=== PATIENT | female | born 1990 | race Caucasian/White ===

== ENCOUNTER 2018-05-09 18:45 | Emergency (ER) | payer BC, SELFPAY ==
[2018-05-09] MEDS ORDERED: DUONEB 0.5-3 MG/3 ml Neb IH ONE ×2 (18:52→19:20)
[2018-05-09] MEDS ORDERED: solu-MEDROL 125 MG IV ONE (18:52)
[2018-05-09] MEDS ORDERED: Zofran 4 MG/2 ML VIAL IV ONE (18:52)
--- NOTE | 2018-05-09 18:52 | ERPHSYRPT ---
- History of Present Illness Time Seen by Provider: 05/09/18 18:49 Source: patient, family Exam Limitations: no limitations Physician History: pt is 27 year old female with 2 day hx min productive cough - no fever , some short of breath - no hx heart dx or CP - no hx PE or DVT , recent hops /surg or hormonal use; some rhonchi on exam Timing/Duration: day(s) Cough Quality/Degree: moderate, productive cough Possible Cause: no prior episodes Modifying Factors: Improves With: coughing Associated Symptoms: cough, shortness of breath, wheezing Allergies/Adverse Reactions: morphine Allergy (Verified 02/05/16 21:41) Sulfa (Sulfonamide Antibiotics) [Sulfa(Sulfonamide Antibiotics)] Allergy ( Verified 02/05/16 21:41) Home Medications: Vits W-Ca,Fe,FA(<1Mg) [] 1 ea DAILY 08/21/15 [History] Metformin HCl 500 mg [Glucophage 500 MG] 500 mg PO BID 02/04/16 [History] Hx Tetanus, Diphtheria Vaccination/Date Given: Yes Hx Influenza Vaccination/Date Given: No Hx Pneumococcal Vaccination/Date Given: No - Review of Systems Constitutional: No Fever, No Chills Eyes: No Symptoms Ears, Nose, & Throat: No Symptoms Respiratory: Cough, Dyspnea Cardiac: No Chest Pain, No Edema, No Syncope Abdominal/Gastrointestinal: No Abdominal Pain, No Nausea, No Vomiting, No Diarrhea Genitourinary Symptoms: No Dysuria Musculoskeletal: No Back Pain, No Neck Pain Skin: No Rash Neurological: No Dizziness, No Focal Weakness, No Sensory Changes Psychological: No Symptoms Endocrine: No Symptoms All Other Systems: Reviewed and Negative - Past Medical History Pertinent Past Medical History: No Neurological History: No Pertinent History ENT History: No Pertinent History Cardiac History: No Pertinent History Respiratory History: No Pertinent History Endocrine Medical History: No Pertinent History Musculoskeletal History: No Pertinent History GI Medical History: Irritable Bowel History: No Pertinent History Psycho-Social History: Depression Female Reproductive Disorders: No Pertinent History Other Medical History: GESTATIONAL DIABETES - Past Surgical History Past Surgical History: Yes Neuro Surgical History: No Pertinent History Cardiac: No Pertinent History Respiratory: No Pertinent History Gastrointestinal: No Pertinent History Genitourinary: No Pertinent History Musculoskeletal: No Pertinent History Female Surgical History: Section - Social History Smoking Status: Never smoker How long have you smoked: none Exposure to second hand smoke: No Drug Use: none Patient Lives Alone: No Significant Family History: no pertinent family hx - Nursing Vital Signs Nursing Vital Signs: Initial Vital Signs Temperature 98.9 F 05/09/18 18:50 Pulse Rate 95 H 05/09/18 18:50 Respiratory Rate 20 05/09/18 18:50 Blood Pressure 130/79 05/09/18 18:50 O2 Sat by Pulse Oximetry 97 05/09/18 18:50 Pain Scale Pain Intensity 0 - Physical Exam General Appearance: no apparent distress, alert Eye Exam: PERRL/EOMI, eyes nml inspection Ears, Nose, Throat Exam: normal ENT inspection, TMs normal, pharynx normal, moist mucous membranes Neck Exam: normal inspection, non-tender, supple, full range of motion Respiratory Exam: normal breath sounds, airway intact, rhonchi, No respiratory distress, No accessory muscle use, No crackles/rales, No stridor Cardiovascular Exam: regular rate/rhythm, normal heart sounds Gastrointestinal/Abdomen Exam: soft, No tenderness Back Exam: normal inspection, No CVA tenderness, No vertebral tenderness Extremity Exam: normal inspection, normal range of motion Neurologic Exam: alert, oriented x 3, cooperative, normal mood/affect, sensation nml, No motor deficits Skin Exam: normal color, warm, dry, No rash Lymphatic Exam: No adenopathy - Course Nursing assessment & vital signs reviewed: Yes EKG Interpreted by Me: Sinus Rhythm, NORMAL AXIS, NORMAL INTERVALS, NORMAL QRS, Non-specific ST Changes - Radiology Exams Chest X-ray Interpretation: Reviewed by me, No Pneumonia Ordered Tests: Active Orders 24 hr Category Date Time Status Microchip Specialist STAT Care 05/09/18 18:53 Active EKG-ER Only STAT Care 05/09/18 18:52 Active IV Insertion STAT Care 05/09/18 18:52 Active Pulse Oximetry (ED) STAT Care 05/09/18 18:52 Active CHEST 2 VIEWS (PA AND LAT) Stat Exams 05/09/18 18:52 Completed CBC W DIFF Stat Lab 05/09/18 19:00 Completed CMP Stat Lab 05/09/18 19:00 Completed D-DIMER QUANTITATION Stat Lab 05/09/18 19:00 Completed HCG QUALITATIVE,SERUM Stat Lab 05/09/18 19:00 Completed TROPONIN Q3H Lab 05/09/18 19:45 Completed TROPONIN Q3H Lab 05/09/18 22:00 Ordered TROPONIN Q3H Lab 05/10/18 01:00 Ordered TROPONIN Q3H Lab 05/10/18 04:00 Ordered TROPONIN Q3H Lab 05/10/18 07:00 Ordered Peak Expiratory Flow Rate ONCE RT 05/09/18 19:25 Active Respiratory Nebulizer STAT RT 05/09/18 18:54 Completed Respiratory Therapy Assessment DAILY RT 05/09/18 19:25 Active Medication Summary Generic Name Dose Route Start Last Admin Trade Name Freq PRN Reason Stop Dose Admin Sodium Chloride 1,000 mls @ 100 mls/hr 05/09/18 19:00 05/09/18 19:05 Sodium Chloride 0.9% 1000 Ml IV 06/08/18 18:59 100 mls/hr .Q10H VERA Administration Discontinued Medications Generic Name Dose Route Start Last Admin Trade Name Freq PRN Reason Stop Dose Admin Albuterol/Ipratropium 3 ml 05/09/18 18:52 05/09/18 19:21 Duoneb 0.5-3 Mg/3 Ml Neb IH 05/09/18 18:53 3 ml STAT ONE Administration Albuterol/Ipratropium Confirm 05/09/18 19:20 Duoneb 0.5-3 Mg/3 Ml Neb Administered 05/09/18 19:21 Dose 3 ml IH .STK-MED ONE Methylprednisolone Sodium Succinate 125 mg 05/09/18 18:52 05/09/18 19:05 Solu-Medrol 125 Mg IV 05/09/18 18:53 125 mg STAT ONE Administration Methylprednisolone Sodium Succinate Confirm 05/09/18 19:01 Solu-Medrol 125 Mg Administered 05/09/18 19:02 Dose 125 mg .ROUTE .STK-MED ONE Ondansetron HCl 4 mg 05/09/18 18:52 05/09/18 19:05 Zofran 4 Mg/2 Ml Vial IV 05/09/18 18:53 4 mg STAT ONE Administration Ondansetron HCl Confirm 05/09/18 19:01 Zofran 4 Mg/2 Ml Vial Administered 05/09/18 19:02 Dose 4 mg .ROUTE .STK-MED ONE Lab/Rad Data: Laboratory Result Diagrams 05/09/18 19:00 05/09/18 19:00 Laboratory Results 05/09/18 05/09/18 05/09/18 Range/Units 20:00 19:45 19:00 WBC (4.0-10.5) K/mm3 RBC (4.1-5.4) M/mm3 Hgb (12.0-16.0) gm/dl Hct (35-47) % MCV (78-100) fl MCH (26-32) pg MCHC (32-36) g/dl RDW (11.5-14.0) % Plt Count (150-450) K/mm3 MPV (6-9.5) fl Gran % (36.0-66.0) % Eos # (Auto) (0-0.5) Absolute Lymphs (auto) (1.0-4.6) Absolute Monos (auto) (0.0-1.3) Lymphocytes % (24.0-44.0) % Monocytes % (0.0-12.0) % Eosinophils % (0.00-5.0) % Basophils % (0.0-0.4) % Absolute Granulocytes (1.4-6.9) Basophils # (0-0.4) D-Dimer (215-500) ng/mL Sodium (137-145) mmol/L Potassium (3.5-5.1) mmol/L Chloride (98-107) mmol/L Carbon Dioxide (22-30) mmol/L Anion Gap (5-15) MEQ/L BUN (7-17) mg/dL Creatinine (0.52-1.04) mg/dL Estimated GFR ML/MIN Glucose (74-106) mg/dL Calcium (8.4-10.2) mg/dL Total Bilirubin (0.2-1.3) mg/dL AST (14-36) U/L ALT (0-35) U/L Alkaline Phosphatase (38-126) U/L Troponin I < 0.012 (0.000-0.034) ng/mL Serum Total Protein (6.3-8.2) g/dL Albumin (3.5-5.0) g/dL Serum , Qual NEGATIVE (Negative) Influenza Type A Ag NEGATIVE (NEGATIVE) Influenza Type B Ag NEGATIVE (NEGATIVE) RSV (PCR) NEGATIVE (Negative) Group A Strep Antibody NEGATIVE (NEGATIVE) 05/09/18 05/09/18 05/09/18 Range/Units 19:00 19:00 19:00 WBC 8.2 (4.0-10.5) K/mm3 RBC 4.48 (4.1-5.4) M/mm3 Hgb 11.6 L (12.0-16.0) gm/dl Hct 35.8 (35-47) % MCV 79.9 (78-100) fl MCH 25.8 L (26-32) pg MCHC 32.4 (32-36) g/dl RDW 15.4 H (11.5-14.0) % Plt Count 292 (150-450) K/mm3 MPV 10.3 H (6-9.5) fl Gran % 51.7 (36.0-66.0) % Eos # (Auto) 0.57 H (0-0.5) Absolute Lymphs (auto) 2.59 (1.0-4.6) Absolute Monos (auto) 0.75 (0.0-1.3) Lymphocytes % 31.7 (24.0-44.0) % Monocytes % 9.2 (0.0-12.0) % Eosinophils % 7.0 H (0.00-5.0) % Basophils % 0.4 (0.0-0.4) % Absolute Granulocytes 4.24 (1.4-6.9) Basophils # 0.03 (0-0.4) D-Dimer < 215 L (215-500) ng/mL Sodium 143 (137-145) mmol/L Potassium 4.2 (3.5-5.1) mmol/L Chloride 110 H (98-107) mmol/L Carbon Dioxide 23 (22-30) mmol/L Anion Gap 14.9 (5-15) MEQ/L BUN 10 (7-17) mg/dL Creatinine 0.66 (0.52-1.04) mg/dL Estimated GFR > 60.0 ML/MIN Glucose 95 (74-106) mg/dL Calcium 9.0 (8.4-10.2) mg/dL Total Bilirubin 0.20 (0.2-1.3) mg/dL AST 18 (14-36) U/L ALT 14 (0-35) U/L Alkaline Phosphatase 75 (38-126) U/L Troponin I (0.000-0.034) ng/mL Serum Total Protein 7.6 (6.3-8.2) g/dL Albumin 4.4 (3.5-5.0) g/dL Serum , Qual (Negative) Influenza Type A Ag (NEGATIVE) Influenza Type B Ag (NEGATIVE) RSV (PCR) (Negative) Group A Strep Antibody (NEGATIVE) - Progress Progress: improved, re-examined Air Movement: good Progress Note: 05/09/18 21:47 lab missed trop and when called had to start from scratch resulting in delay past 3 hours to dispo. 05/09/18 22:09 symptoms resolved with breathing tx in ER and pt wishes DC at this time - we have explained that there may still be undetected pathology evolving and that a workup with PCP is advised - pt wishes to begin resp tx and to f/u PCP. 05/09/18 22:12 discussed risk /benefit of ab and pt wishes to proceed. Blood Culture(s) Obtained: No Antibiotics given: Yes Counseled pt/family regarding: diagnosis, need for follow-up, rad results - Departure Time of Disposition: 22:11 Departure Disposition: Home Clinical Impression: RAD (reactive airway disease) with wheezing, URI (upper respiratory infection) Condition: Good Critical Care Time: No Referrals: COLBY NOVA [Primary Care Provider] - Instructions: Shortness of Breath (Dyspnea) (DC), Asthma in Adults Additional Instructions: we have not determined the cause for your symptoms and further workup with your Dr is needed; but reactive airway is a possibility which is like a mild form of asthma - return meantime if further symptoms, or other concerns Prescriptions: Albuterol Common Canister [Proventil Common Canister] 1 puff IH Q4HPRN PRN #1 puff PRN Reason: Shortness Of Breath Azithromycin 250 mg [Zithromax 250 MG TABLET] 250 mg PO ZPACK #6 tablet Methylprednisolone Packet [Medrol Dosepack] 4 mg PO UD #1 packet
[2018-05-09] MEDS ORDERED: Sodium Chloride 0.9% 1000 ML 1,000 ML IV SCH (19:00)
[2018-05-09] MEDS ORDERED: solu-MEDROL 125 MG ONE (19:01)
[2018-05-09] MEDS ORDERED: Zofran 4 MG/2 ML VIAL ONE (19:01)
[2018-05-09] MEDS ORDERED: Sodium Chloride 0.9% 1000 ML 1,000 ML ONE (19:01)
[2018-05-09 19:26] LABS: BASOPHIL % 0.4 % (0.0-0.4); Basophil (Absolute #) 0.03 (0-0.4); Eosinophil (Absolute #) 0.57 (0-0.5); Granulocyte Absolute (ANC) 4.24 (1.4-6.9); Granulocytes % 51.7 % (36.0-66.0); Hematocrit 35.8 % (35-47); Hemoglobin 11.6 gm/dl (12.0-16.0); Lymphocyte (Absolute #) 2.59 (1.0-4.6); Lymphocytes % 31.7 % (24.0-44.0); Mean Cell Volume 79.9 fl (78-100); Mean Corpuscular Hgb Concent. 32.4 g/dl (32-36); Mean Platelet Volume 10.3 fl (6-9.5); Monocyte (Absolute #) 0.75 (0.0-1.3); Monocytes % 9.2 % (0.0-12.0); Platelet Count 292 K/mm3 (150-450); Red Blood Count 4.48 M/mm3 (4.1-5.4); Red Cell Distribution Width 15.4 % (11.5-14.0); White Blood Count 8.2 K/mm3 (4.0-10.5)
[2018-05-09 19:44] LABS: Mean Corpuscular Hemoglobin 25.8 pg (26-32)
[2018-05-09 19:52] LABS: ALBUMIN 4.4 g/dL (3.5-5.0); ALKALINE PHOSPHATASE 75 U/L (38-126); ANION GAP 14.9 MEQ/L (5-15); BLOOD UREA NITROGEN 10 mg/dL (7-17); CHLORIDE 110 mmol/L (98-107); Carbon Dioxide 23 mmol/L (22-30); Creatinine 1 0.66 mg/dL (0.52-1.04); Glucose 95 mg/dL (74-106); Potassium 4.2 mmol/L (3.5-5.1); SGOT/AST 18 U/L (14-36); SGPT/ALT 14 U/L (0-35); SODIUM 143 mmol/L (137-145); Total Protein 7.6 g/dL (6.3-8.2)
[2018-05-09 21:20] LABS: INFLUENZA A NEGATIVE (NEGATIVE); INFLUENZA B NEGATIVE (NEGATIVE); RESPIRATORY SYNCTIAL VIRUS NEGATIVE (Negative)
--- NOTE | 2018-05-09 21:30 | XRAY ---
Indication: Productive cough and short of breath. Comparison: None PA/lateral chest demonstrates normal heart and lungs. Bony thorax intact with minimal double curvature scoliosis.
[2018-05-09 21:38] VITALS: O2SAT 98
[2018-05-09 22:21] VITALS: BP 116/67; PULSE 89
[2018-05-09] MEDS ORDERED: Zithromax 250 MG TABLET PO ONE (22:22)
[2018-05-09] MEDS ORDERED: Zithromax 250 MG TABLET ONE (22:31)
== END 2018-05-09 22:47 | disposition home or self-care (01) ==
LOC: ED 18:45
DX: J45.909 Unspecified asthma, uncomplicated (principal); J06.9 Acute upper respiratory infection, unspecified; Z79.899 Other long term (current) drug therapy
CPT/HCPCS: 36000; 36415; 71046; 80053; 84484; 84703; 85025; 85379; 87631; 87651; 93005; 93041; 94150; 94640; 96360; 96374; 96375; 99285; J2405; J2930; A9270-GY

== ENCOUNTER 2022-02-11 18:11 | Emergency (ER) | payer BC ==
[2022-02-11] MEDS ORDERED: Sodium Chloride 0.9% 1000 ML 1,000 ML ONE (19:04)
[2022-02-11] MEDS ORDERED: Sodium Chloride 0.9% 1000 ML 1,000 ML IV SCH (19:15)
--- NOTE | 2022-02-11 19:16 | ERPHSYRPT ---
- History of Present Illness Time Seen by Provider: 02/11/22 18:35 Source: patient Exam Limitations: no limitations Patient Subjective Stated Complaint: dizziness Triage Nursing Assessment: Patient ambulated back to ED and transferred self to bed. Patient A+O X 3. Patient's skin pink, warm and dry. Patient complains of dizziness on and off today. Patient states she is nauseated also. Patient denies pain or discomfort. Physician History: Patient is a 31-year-old female history of gestational diabetes with her last 2 pregnancies and a significant family history for diabetes presents to our ED for evaluation of dizziness. Patient checked her blood sugar at home and found that her sugars were high. Patient states her sugars been running between 2 and 300. Patient concerned that she has become a diabetic. She is otherwise asymptomatic. Patient states this is making her very anxious. Patient denies pain. No nausea vomiting or diaphoresis. No fever. No foci of infection. Symptoms are constant. Symptoms are moderate in intensity. No specific worsening improving factors. Patient voices no other complaints or concerns at this time. Timing/Duration: today Severity: moderate Modifying Factors: Improves With: nothing Associated Symptoms: denies symptoms, No chest pain, No syncope Allergies/Adverse Reactions: morphine Allergy (Verified 02/11/22 18:26) Sulfa (Sulfonamide Antibiotics) [Sulfa(Sulfonamide Antibiotics)] Allergy (Verified 02/11/22 18:26) Home Medications: Bupropion HCl Xl 150 mg [Wellbutrin XL 150 MG] 1 tab PO HS 02/11/22 [History] Dicyclomine HCl 20 mg [Bentyl 20 mg] 1 tab PO BID PRN 02/11/22 [History] Methylphenidate HCl [Concerta] 1 tab PO DAILY 02/11/22 [History] Montelukast Sodium 10 mg [Singulair 10 MG] 1 tab PO DAILY 02/11/22 [History] Hx Tetanus, Diphtheria Vaccination/Date Given: Yes Hx Influenza Vaccination/Date Given: No Hx Pneumococcal Vaccination/Date Given: No Immunizations Up to Date: Yes Travel Risk - International Travel Have you traveled outside of the country in past 3 weeks: No - Coronavirus Screening Are you exhibiting any of the following symptoms?: No Close contact with a COVID-19 positive Pt in past 14-21 Days: No - Vaccine Status Have you recieved a Covid-19 vaccination: Yes Commodity Lead: Moderna - Vaccination Dates Date of 2cond Vaccination (if applicable): Oct 2020 - Review of Systems Constitutional: No Symptoms, No Fever, No Chills Eyes: No Symptoms Ears, Nose, & Throat: No Symptoms Respiratory: No Symptoms, No Cough, No Dyspnea Cardiac: No Symptoms, No Chest Pain, No Edema, No Syncope Abdominal/Gastrointestinal: No Symptoms, No Abdominal Pain, No Nausea, No Vo miting, No Diarrhea Genitourinary Symptoms: No Symptoms, No Dysuria Musculoskeletal: No Symptoms, No Back Pain, No Neck Pain Skin: No Symptoms, No Rash Neurological: No Symptoms, No Dizziness, No Focal Weakness, No Sensory Changes Psychological: No Symptoms Endocrine: No Symptoms Hematologic/Lymphatic: No Symptoms Immunological/Allergic: No Symptoms All Other Systems: Reviewed and Negative - Past Medical History Pertinent Past Medical History: No Neurological History: No Pertinent History ENT History: No Pertinent History Cardiac History: No Pertinent History Respiratory History: No Pertinent History Endocrine Medical History: No Pertinent History Musculoskeletal History: No Pertinent History GI Medical History: Irritable Bowel History: No Pertinent History Psycho-Social History: Depression Female Reproductive Disorders: No Pertinent History Other Medical History: GESTATIONAL DIABETES - Past Surgical History Past Surgical History: Yes Neuro Surgical History: No Pertinent History Cardiac: No Pertinent History Respiratory: No Pertinent History Gastrointestinal: No Pertinent History Genitourinary: No Pertinent History Musculoskeletal: No Pertinent History Female Surgical History: Section - Social History Smoking Status: Never smoker How long have you smoked: none Exposure to second hand smoke: No Drug Use: none Patient Lives Alone: No Significant Family History: no pertinent family hx - Female History Hx Last Menstrual Period: currently Hx Now: No - Nursing Vital Signs Nursing Vital Signs: Initial Vital Signs Temperature 98.8 F 02/11/22 18:29 Pulse Rate 105 H 02/11/22 18:29 Respiratory Rate 18 02/11/22 18:29 Blood Pressure 172/107 02/11/22 18:29 O2 Sat by Pulse Oximetry 99 02/11/22 18:29 Pain Scale Pain Intensity 0 - Physical Exam General Appearance: no apparent distress, alert Eye Exam: PERRL/EOMI, eyes nml inspection Ears, Nose, Throat Exam: normal ENT inspection, TMs normal, pharynx normal, moist mucous membranes Neck Exam: normal inspection, non-tender, supple, full range of motion Respiratory Exam: normal breath sounds, lungs clear, airway intact, No respiratory distress Cardiovascular Exam: regular rate/rhythm, normal heart sounds, normal peripheral pulses Gastrointestinal/Abdomen Exam: soft, normal bowel sounds, No tenderness, No mass Back Exam: normal inspection, normal range of motion, No CVA tenderness, No vertebral tenderness Extremity Exam: normal inspection, normal range of motion, pelvis stable Neurologic Exam: alert, oriented x 3, cooperative, normal mood/affect, nml cerebellar function, nml station & gait, sensation nml, No motor deficits Skin Exam: normal color, warm, dry, No rash Lymphatic Exam: No adenopathy SpO2 Interpretation: normal SpO2: 97 O2 Delivery: Room Air - Course Nursing assessment & vital signs reviewed: Yes EKG Interpreted by Me: RATE ([id number]), Sinus Tach, NORMAL AXIS, NORMAL INTERVALS Ordered Tests: Active Orders 24 hr Category Date Time Status EKG-ER Only STAT Care 02/11/22 18:51 Active IV Insertion STAT Care 02/11/22 18:51 Active CBC W DIFF Stat Lab 02/11/22 19:30 Completed CMP Stat Lab 02/11/22 19:30 Completed TROPONIN Q3H Lab 02/11/22 19:30 Completed TROPONIN Q3H Lab 02/11/22 22:15 Ordered TROPONIN Q3H Lab 02/12/22 01:15 Ordered TROPONIN Q3H Lab 02/12/22 04:15 Ordered TROPONIN Q3H Lab 02/12/22 07:15 Ordered UA W/RFX CULTURE Stat Lab 02/11/22 18:56 Completed Medication Summary Generic Name Dose Route Start Last Admin Trade Name Theodoreq PRN Reason Stop Dose Admin Sodium Chloride 1,000 mls @ 100 mls/hr 02/11/22 19:15 02/11/22 19:05 Sodium Chloride 0.9% 1000 Ml IV 03/13/22 19:14 100 mls/hr .Q10H VERA Administration Lab/Rad Data: Laboratory Result Diagrams 02/11/22 19:30 02/11/22 19:30 Laboratory Results 02/11/22 02/11/22 02/11/22 Range/Units 19:30 19:30 19:30 WBC 6.8 (4.0-10.5) x10^3/uL RBC 4.46 (4.1-5.4) x10^6/uL Hgb 12.0 (12.0-16.0) g/dL Hct 37.1 (35-47) % MCV 83.2 (78-100) fL MCH 26.9 (26-32) pg MCHC 32.3 (32-36) g/dL RDW 13.7 (11.5-14.0) % Plt Count 251 (150-450) x10^3/uL MPV 10.7 (7.5-11.0) fL Gran % 68.9 H (36.0-66.0) % Immature Gran % (Auto) 0.3 (0.00-0.4) % Nucleat RBC Rel Count 0.0 (0.00-0.1) % Eos # (Auto) 0.10 (0-0.5) x10^3/uL Immature Gran # (Auto) 0.02 (0.00-0.03) x10^3u/L Absolute Lymphs (auto) 1.51 (1.0-4.6) x10^3/uL Absolute Monos (auto) 0.44 (0.0-1.3) x10^3/uL Absolute Nucleated RBC 0.00 (0.00-0.01) x10^3u/L Lymphocytes % 22.2 L (24.0-44.0) % Monocytes % 6.5 (0.0-12.0) % Eosinophils % 1.5 (0.00-5.0) % Basophils % 0.6 (0.0-0.4) % Absolute Granulocytes 4.68 (1.4-6.9) x10^3/uL Basophils # 0.04 (0-0.4) x10^3/uL Sodium 142 (137-145) mmol/L Potassium 3.5 (3.5-5.1) mmol/L Chloride 108 H (98-107) mmol/L Carbon Dioxide 22 (22-30) mmol/L Anion Gap 15.1 H (5-15) MEQ/L BUN 8 (7-17) mg/dL Creatinine 0.76 (0.52-1.04) mg/dL Estimated GFR > 60.0 ML/MIN Glucose 137 H (74-106) mg/dL Calcium 8.9 (8.4-10.2) mg/dL Total Bilirubin 0.40 (0.2-1.3) mg/dL AST 44 H (14-36) U/L ALT 54 H (0-35) U/L Alkaline Phosphatase 91 (38-126) U/L Troponin I < 0.012 (0.000-0.034) ng/mL Serum Total Protein 7.4 (6.3-8.2) g/dL Albumin 4.1 (3.5-5.0) g/dL Urinalys Dipstick Clnc Urine Color (YELLOW) Urine Appearance (CLEAR) Urine pH (5-6) Ur Specific [place] (1.005-1.025) POC Urine Protein Conf (Negative) Urine Ketones (NEGATIVE) Urine Nitrite (NEGATIVE) Urine Bilirubin (NEGATIVE) Urine Urobilinogen (0-1) mg/dL Urine Leukocytes (NEGATIVE) Urine WBC (Auto) (0-5) /HPF Urine RBC (Auto) (0-2) /HPF U Epithel Cells (Auto) (FEW) /HPF Urine Bacteria (Auto) (NEGATIVE) /HPF Urine RBC (0-5) Tj/ul Urine Mucus (Auto) (NEGATIVE) /HPF Ur Culture Indicated? Urine Glucose (NEGATIVE) mg/dL 02/11/22 Range/Units 18:56 WBC (4.0-10.5) x10^3/uL RBC (4.1-5.4) x10^6/uL Hgb (12.0-16.0) g/dL Hct (35-47) % MCV (78-100) fL MCH (26-32) pg MCHC (32-36) g/dL RDW (11.5-14.0) % Plt Count (150-450) x10^3/uL MPV (7.5-11.0) fL Gran % (36.0-66.0) % Immature Gran % (Auto) (0.00-0.4) % Nucleat RBC Rel Count (0.00-0.1) % Eos # (Auto) (0-0.5) x10^3/uL Immature Gran # (Auto) (0.00-0.03) x10^3u/L Absolute Lymphs (auto) (1.0-4.6) x10^3/uL Absolute Monos (auto) (0.0-1.3) x10^3/uL Absolute Nucleated RBC (0.00-0.01) x10^3u/L Lymphocytes % (24.0-44.0) % Monocytes % (0.0-12.0) % Eosinophils % (0.00-5.0) % Basophils % (0.0-0.4) % Absolute Granulocytes (1.4-6.9) x10^3/uL Basophils # (0-0.4) x10^3/uL Sodium (137-145) mmol/L Potassium (3.5-5.1) mmol/L Chloride (98-107) mmol/L Carbon Dioxide (22-30) mmol/L Anion Gap (5-15) MEQ/L BUN (7-17) mg/dL Creatinine (0.52-1.04) mg/dL Estimated GFR ML/MIN Glucose (74-106) mg/dL Calcium (8.4-10.2) mg/dL Total Bilirubin (0.2-1.3) mg/dL AST (14-36) U/L ALT (0-35) U/L Alkaline Phosphatase (38-126) U/L Troponin I (0.000-0.034) ng/mL Serum Total Protein (6.3-8.2) g/dL Albumin (3.5-5.0) g/dL Urinalys Dipstick Clnc MAIN LAB Urine Color YELLOW (YELLOW) Urine Appearance CLEAR (CLEAR) Urine pH 5.5 (5-6) Ur Specific [place] >=1.030 (1.005-1.025) POC Urine Protein Conf NEGATIVE (Negative) Urine Ketones NEGATIVE (NEGATIVE) Urine Nitrite NEGATIVE (NEGATIVE) Urine Bilirubin NEGATIVE (NEGATIVE) Urine Urobilinogen 0.2 (0-1) mg/dL Urine Leukocytes NEGATIVE (NEGATIVE) Urine WBC (Auto) NONE (0-5) /HPF Urine RBC (Auto) 16-25 (0-2) /HPF U Epithel Cells (Auto) NONE (FEW) /HPF Urine Bacteria (Auto) NONE (NEGATIVE) /HPF Urine RBC MODERATE (0-5) Tj/ul Urine Mucus (Auto) SLIGHT (NEGATIVE) /HPF Ur Culture Indicated? NO Urine Glucose 100 (NEGATIVE) mg/dL - Progress Progress: improved Progress Note: Patient reassessed. She feels well. Patient asymptomatic. Glucose 137. Patient that she is ready for discharge. No indication for further work-up at this time. No chest pain or shortness of breath. No nausea vomiting or diaphoresis. Patient agrees to follow-up with primary care doctor within 48 hours for evaluation. Patient voiced no other complaints or concerns at this time. EKG normal sinus rhythm. Blood pressure improved to 153/88 Portions of this note were created with voice recognition technology. There may be grammatical, spelling, punctuation or sound alike errors 02/11/22 20:17 Counseled pt/family regarding: lab results, diagnosis, need for follow-up - Departure Departure Disposition: Home Clinical Impression: Dizziness, Hyperglycemia Condition: Stable Critical Care Time: No Referrals: BEATRIZ HECTOR MD [Primary Care Provider] - Follow up/PCP as directed Additional Instructions: Discharge/Care Plan ZEHRA VARMA was seen on 02/11/22 in the Emergency Room. The patient was counseled regarding Diagnosis,Lab results, Imaging studies, need for follow up and when to return to the Emergency Room. Prescriptions given: Discharge Note I have spoken with the patient and/or caregivers. I have explained the patient's condition, diagnosis and treatment plan based on the information available to me at this time. I have answered the patient's and/or caregiver's questions and addressed any concerns. The patient and/or caregivers have as good understanding of the patient's diagnosis, condition and treatment plan as can be expected at this point. The vital signs have been stable. The patient's condition is stable and appropriate for discharge from the emergency department. The patient will pursue further outpatient evaluation with the primary care physician or other designated or consulting physician as outlined in the discha e instructions. The patient and/or caregivers are agreeable to this plan of care and follow-up instructions have been explained in detail. The patient and/or caregivers have received these instruction. The patient/and or caregivers are aware that any significant change in condition or worsening of symptoms should prompt an immediate return to this or the closest emergency department or call 911.
[2022-02-11 19:34] LABS: Absolute Neutrophil Ct (ANC) 4.68 x10^3/uL (1.4-6.9); Basophil (Absolute #) 0.04 x10^3/uL (0-0.4); Eosinophil % 1.5 % (0.00-5.0); Hematocrit 37.1 % (35-47); Lymphocyte (Absolute #) 1.51 x10^3/uL (1.0-4.6); Lymphocytes % 22.2 % (24.0-44.0); Mean Cell Volume 83.2 fL (78-100); Mean Corpuscular Hemoglobin 26.9 pg (26-32); Mean Corpuscular Hgb Concent. 32.3 g/dL (32-36); Mean Platelet Volume 10.7 fL (7.5-11.0); Monocyte (Absolute #) 0.44 x10^3/uL (0.0-1.3); Monocytes % 6.5 % (0.0-12.0); Neutrophil % 68.9 % (36.0-66.0); Platelet Count 251 x10^3/uL (150-450); Red Blood Count 4.46 x10^6/uL (4.1-5.4); Red Cell Distribution Width 13.7 % (11.5-14.0); White Blood Count 6.8 x10^3/uL (4.0-10.5)
[2022-02-11 19:40] LABS: Appearance CLEAR (CLEAR); Bilirubin NEGATIVE (NEGATIVE); Dipstick done @ ? MAIN LAB; Glucose 100 mg/dL (NEGATIVE); Ketones NEGATIVE (NEGATIVE); Mucus SLIGHT /HPF (NEGATIVE); Nitrite NEGATIVE (NEGATIVE); Ph 5.5 (5-6); Protein,Urine Dip NEGATIVE (Negative); RBC MODERATE Ery/ul (0-5); Specific Gravity >=1.030 (1.005-1.025); Urobilinogen 0.2 mg/dL (0-1)
[2022-02-11 19:41] LABS: Urine Cultured Indicated? NO
[2022-02-11 19:46] LABS: ALBUMIN 4.1 g/dL (3.5-5.0); ALKALINE PHOSPHATASE 91 U/L (38-126); ANION GAP 15.1 MEQ/L (5-15); BLOOD UREA NITROGEN 8 mg/dL (7-17); CHLORIDE 108 mmol/L (98-107); Calcium 8.9 mg/dL (8.4-10.2); Carbon Dioxide 22 mmol/L (22-30); Creatinine 1 0.76 mg/dL (0.52-1.04); EST GLOMERULAR FILTRATION RATE > 60.0 ML/MIN; Glucose 137 mg/dL (74-106); Potassium 3.5 mmol/L (3.5-5.1); SGOT/AST 44 U/L (14-36); SGPT/ALT 54 U/L (0-35); SODIUM 142 mmol/L (137-145); Total Protein 7.4 g/dL (6.3-8.2)
[2022-02-11] MEDS ORDERED: ANTIVERT 25 MG ONE (20:34)
[2022-02-11] MEDS ORDERED: ANTIVERT 25 MG PO ONE (20:37)
[2022-02-11 21:19] VITALS: BP 145/84; PULSE 84; O2SAT 98
--- NOTE | 2022-02-12 08:59 | XRAY ---
Indication: Dizziness. Multiple contiguous axial images obtained through the head without contrast. Comparison: None Normal appearing brain parenchyma, ventricles, and bony calvarium. Visualized paranasal sinuses and mastoid air cells are clear. Impression: Normal CT head without contrast exam.
== END 2022-02-11 21:47 | disposition home or self-care (01) ==
LOC: ED 18:11
DX: R42 Dizziness and giddiness (principal); R73.9 Hyperglycemia, unspecified; Z79.899 Other long term (current) drug therapy
CPT/HCPCS: 36000; 36415; 70450; 80053; 81015; 84484; 85025; 93005; 99285; A9270-GY